=== PATIENT | male | born 1950 | race American Indian/Alaskan Native ===

== ENCOUNTER 2017-10-12 07:21 | Day surgery (SDC) | payer OTHER ==
[2017-10-10 11:42] LABS: Absolute Lymphocytes (CBC) 2.7 K/uL (0.7-4.9); Absolute Monocytes 0.6 K/uL (0.1-1.3); Absolute Neutrophil 5.4 K/uL (1.8-8.0); Basophils % 0.6 % (0-1.3); Hematocrit 42.3 % (39.6-49.0); Lymphocytes % 29.2 % (15.3-44.8); MCH 27.8 pg (27.0-35.0); MCV 83.1 fL (80-100); MPV 12.1 fL (7.6-11.3); Monocytes % 6.5 % (3.3-12.3)
--- NOTE | 2017-10-10 11:43 | RAD REPORT ---
EXAM DESCRIPTION: RADOP - Outpt Chest Pa/Lat (2 Views) - 10/10/2017 11:35 am CLINICAL HISTORY: Chest pain. COMPARISON: None. FINDINGS: The lungs are clear. The heart is normal in size. No displaced fractures. IMPRESSION: No acute or concerning finding suspected.
[2017-10-10 12:10] LABS: BUN Blood Urea Nitrogen 10 mg/dL (6-20); Bicarbonate 28 mEq/L (21-31); Glomerular Filtration Rate > 90 mL/min (=/>90); Glucose Level 97 mg/dL (65-120); Potassium 4.1 mEq/L (3.6-5.0); Sodium Level 139 mEq/L (135-145)
[2017-10-10 12:16] LABS: Albumin 4.1 g/dL (3.2-5.5); Bilirubin Direct 0.1 mg/dL (0-0.2); Bilirubin Total 0.5 mg/dL (0.3-1.2); Protein, Total 7.4 g/dL (6.0-8.3)
--- NOTE | 2017-10-10 13:43 | EKG ---
Test Date: 2017-10-10 Test Time: 11:28:12 Lumber Salvager: CHOCO MEASUREMENT RESULTS: Intervals: Rate: 65 AL: 126 QRSD: 72 QT: 344 QTc: 357 [place]: P: 13 AL: 126 QRS: 30 T: 22 INTERPRETIVE STATEMENTS: Normal sinus rhythm Increased R/S ratio in V1, consider early transition or posterior infarct Abnormal ECG No previous ECG available for comparison Electronically Signed On 10-10-17 13:42:32 CDT by Adriano Guthrie
[2017-10-12] MEDS ORDERED: NA CHLORIDE 0.9% 1,000 ML ONE (07:53)
[2017-10-12] MEDS ORDERED: CEFOXITIN/SWI 1gm 1 GM/10 ML SYR ONE (07:54)
[2017-10-12] MEDS ORDERED: ONDANSETRON 4 MG/2 ML VIAL ONE (08:06)
[2017-10-12] MEDS ORDERED: PROPOFOL 200 MG/20 ML VIAL IV ONE (08:06)
[2017-10-12] MEDS ORDERED: FENTANYL CITR 100 MCG/2 ML ONE (08:06)
[2017-10-12] MEDS ORDERED: LIDOCAINE 2% MPF 5 ML VIAL ONE (08:06)
[2017-10-12] MEDS ORDERED: MIDAZOLAM HCL 2 MG/2 ML INJ ONE ×2 (08:06→09:55)
[2017-10-12] MEDS ORDERED: ROCURONIUM 50 MG/5 ML VIAL IV ONE (08:12)
[2017-10-12] MEDS ORDERED: EPHEDRINE SULF 50 MG/5 ML SYR ONE (09:13)
[2017-10-12] MEDS ORDERED: GLYCOPYRROLATE 0.2 MG/ML SYR ONE (09:34)
[2017-10-12] MEDS ORDERED: NEOSTIGMINE 1 MG/ML -5 ML SYRINGE ONE (09:35)
[2017-10-12] MEDS ORDERED: MEPERIDINE HCL 50 MG/ML AMP ONE (09:49)
[2017-10-12] MEDS ORDERED: HYDROCODONE/APAP 7.5/325 MG TAB ONE (11:14)
--- NOTE | 2017-10-12 12:56 | OP ---
Date of Procedure: 10/12/2017 Surgeon: Grant Vera MD Powerhouse Helper: ISREAL Meade Preoperative Diagnosis: Symptomatic cholelithiasis. Postoperative Diagnosis: Symptomatic cholelithiasis. Procedure: Laparoscopic cholecystectomy. Estimated Blood Loss: Minimal. Specimen: Gallbladder. Finding: As above. Anesthesia: General. Complications: None. Disposition: The patient tolerated the procedure in stable condition and taken to recovery in good g eneral condition. Procedure In Detail: The patient was brought to the OR and placed in supine position. General anest hesia begun. The patient was prepped and draped in usual sterile fashion. Marcaine 0.5% was infiltr ated locally. A 15-blade was used to make a 1-cm supraumbilical midline incision. Subcutaneous tiss ue was divided. The fascia was identified and divided. A #1 Vicryl stay suture was placed. Periton eal cavity was entered with sharp and blunt dissection. A 12 mm trocar was placed into the peritonea l cavity under direct vision. Pneumoperitoneum was established and then three 12-mm trocars were jian dianne; one in the epigastrium just to the right of midline and 2 in the right subcostal region. Laparo scopy revealed chronic inflammation of the gallbladder. Fundus was retracted superiorly. Infundibul um identified and retracted inferolaterally. Cystic duct and cystic artery were clearly identified w ith blunt dissection. Clips placed. Both structures were divided. Cautery used to remove the gallb ladder from the liver bed. Bleeding on the liver bed was controlled with cautery. The gallbladder w as retrieved through the umbilicus via an EndoCatch bag. Right upper quadrant was irrigated. Efflue nt was clear. No evidence of bleeding or bile leakage appreciated. Subsequently, all trocars were r emoved under direct vision. Stay sutures were tied to each other across the fascial defect. Subcuta neous wounds were irrigated. Bleeding controlled with cautery. A 3-0 chromic was used to approximat e the subcutaneous tissue and close the skin. Sterile dressing was applied. The patient was awakene d and taken to Recovery in good general condition. DISCHARGE NOTE The patient will go to Day Surgery and home when stable. Disposition: Home. Condition: Stable. Discharge Instructions: Resume home medications and diet. Activity as tolerated. No heavy lifting. Remove outer dressing in 2 days. Shower. Keep wound clean and dry. Follow up in my office in 1 w three affiliated. Call for appointment. Tylenol No. 3 one tablet p.o. q.4 p.r.n. pain. DANNY/CASS Voice ID: [id number] Report ID: [id number]
== END 2017-10-12 11:53 | disposition home or self-care (01) ==
LOC: OR 07:21
PROVIDERS: ATTEND Surgery
PROC: 0FT44ZZ Resection of Gallbladder, Percutaneous Endoscopic Approach (ICD-10-PCS; principal; 2017-10-12 08:15)
DX: K80.10 Calculus of gallbladder with chronic cholecystitis without obstruction (principal); I10 Essential (primary) hypertension; E11.9 Type 2 diabetes mellitus without complications
CPT/HCPCS: 36415; 47562; 71046; 80048; 80076; 82150; 82962 ×2; 85025; 88304; 93005; J2175; J2250 ×2; J2405; J2710; J3010; J7030

== ENCOUNTER 2023-03-04 21:55 | Emergency (ER) | payer OTHER ==
--- OUTSIDE RECORDS SUMMARY | 2023-03-04 22:01 | XMS REPORT | Continuity of Care Document ---
:1950 Author Organization [facility] t Address [address] [place] [address] Care Team Providers Name Role Phone Shira Monroe John Primary Care Physician MARZENA QUINTERO Attending Clinician Unavailable Doctor Unassigned, [place] Attending Clinician Unavailable GUMARO ELY Attending Clinician Unavailable Gumaro Ely MD Attending Clinician Vaccine, [facility] Attending Clinician Unavailable Oleg Leiva MD Attending Clinician OLEG LEIVA Attending Clinician Unavailable Carley Van RN Attending Clinician Unavailable Only, Ang Db Test Attending Clinician Unavailable Yazmin Bates MD Attending Clinician YAZMIN BATES Attending Clinician Unavailable NITO LEROY Attending Clinician Unavailable Nurse, [facility] Pob Immunization Attending Clinician Unavailable Nito Leroy DO Attending Clinician Marija Lara RN Attending Clinician Unavailable PAXTON SORIANO Attending Clinician Unavailable Marzena Quintero MD Attending Clinician Pob, [facility] Lab Main Attending Clinician Unavailable Only, Adc Test Attending Clinician Unavailable DIAMANTE TOMLINSON Attending Clinician Unavailable MARZENA QUINTERO Admitting Clinician Unavailable GUMARO ELY Admitting Clinician Unavailable Marzena Quintero MD Admitting Clinician Payers Payer Name Policy Type Policy Number Effective Date Expiration Date S ource MEDICARE PART A \\T\\ [id number] 2017 B 00:00:00 [facility] [id number] 2018 00:00:00 Problems Condition Condition Condition Status Onset Resolution Last Treating Co mments Source Name Details Category Date Date Treatment Clinician Date Cholecysti Cholecysti Disease Active U ulises tis tis 4-06 ity of 00:00: [address] Allergies, Adverse Reactions, Alerts Allergy Allergy Status Severity Reaction(s) Onset Inactive Treating Comm ents Source Name Type Date Date Clinician NO KNOWN Drug Active Univers ALLERGIE Class ity of [facility] Social History Social Habit Start Date Stop Date Quantity Comments Source Gender identity [facility] Sexual orientation [facility] Exposure to 2022-03-05 2022-03-15 Not sure [facility] SARS-CoV-2 (event) 00:00:00 19:25:00 [facility] History of Social 2020-11-11 2020-11-11 Univers ity of function 00:00:00 00:00:00 [facility] Tobacco use and 2020-10-14 2020-10-14 Never used Universit y of exposure 00:00:00 00:00:00 [facility] Sex Assigned [birth year] Universit y of 00:00:00 00:00:00 [facility] Smoking Status Start Date Stop Date Source Unknown if ever smoked [facility] Never smoker [facility] Medications Ordered Filled Start Stop Current Ordering Indication Dosage Frequency Signature Comments Components Source Medication Medication Date Date Medication? Clinician (SIG) Name Name losartan 2022- No 100mg 100 mg, Univ ers (COZAAR) 09-15 Oral, ONCE ity of tablet 100 21:30: 20:44 NOW, 1 [place] mg [place] :00 dose, On Medical Fri Branch 09/15/22 at 1530, Routine hydroCHLORO 2022- No 25mg 25 mg, Uni vers thiazide 09-15 Oral, ity of (ESIDRIX) 20:45: 20:44 ONCE, 1 [place] tablet 25 00 :00 dose, On Medica l mg Fri Branch 09/15/22 at 1445, JACQUES enalaprilat 2023-0 2023- No 1.25mg 1.25 mg, Univers (VASOTEC 09-15 Slow IV ity of I.V.) 19:00: 19:02 Push, [place] injection 00 :00 ONCE, 1 Medical 1.25 mg dose, On Branch 09/15/22 at 1300, STAT iopamidol 2022-0 2022- No [id number] 64mL 64 mL, Univers (ISOVUE 09-15 Intravenou ity o f 370-500 mL) 17:50: 18:00 s, ONCE, 1 [place] injection 00 :00 dose, On Medica l 64 mL Fri Branch 09/15/22 at 1200, Routine enalaprilat 2022-0 2022- No 1.25mg 1.25 mg, Univers (VASOTEC 09-15 Slow IV ity of I.V.) 17:00: 17:15 Push, [place] injection 00 :00 ONCE, 1 Medical 1.25 mg dose, On Branch 09/15/22 at 1100, STAT lisinopril 2022-0 2022- No 10mg Take 10 mg Univers 10 mg 09-15 by mouth ity of tablet 14:42: 00:00 daily. [place] 21 :00 [facility] Branch losartan 50 2022-0 2022- No 50mg Take 50 mg Univers mg tablet 09-15 by mouth ity o f 14:42: 00:00 daily. [place] 21 :00 [facility] Branch losartan-hy 2022-0 Yes [id number] 1{tbl} Take 1 Univers drochloroth 2-24 tablet by ity of iazide 00:00: mouth in [place] 100-25 mg 00 the Medical per tablet morning. Branc h hydrALAZINE 2022-0 Yes [id number] 25mg Take 1 Univers 25 mg 2-24 tablet by ity of tablet 00:00: mouth in [place] 00 the Medical morning Branch and 1 tablet in the evening. losartan-hy 3-0 Yes [id number] 1{tbl} Take 1 Univers drochloroth 2-24 tablet by ity of iazide 00:00: mouth in [place] 100-25 mg 00 the Medical per tablet morning. Branc h hydrALAZINE 3-0 Yes [id number] 25mg Take 1 Univers 25 mg 2-24 tablet by ity of tablet 00:00: mouth in [place] [address] the Medical morning Branch and 1 tablet in the evening. losartan 50 2020-0 Yes 50mg Take 50 mg Univers mg tablet 4-22 by mouth ity of 14:27: daily. [place] [address] Medical Branch gabapentin 2020-0 Yes 100mg Take 100 Un jennifer 100 mg 4-22 mg by ity of capsule 14:27: mouth 3 [place] [address] (three) Medical times Branch daily. atorvastati 1-0 Yes 20mg Take 20 mg Univers n 20 mg 4-22 by mouth ity of tablet 14:27: at [place] [address] bedtime. Medical Branch metFORMIN 2020-0 Yes 1000mg Take 1,000 Univers 1,000 mg 4-22 mg by ity of tablet 14:27: mouth 2 [place] [address] (two) Medical times Branch daily with meals. losartan 50 2020-0 Yes 50mg Take 50 mg Univers mg tablet 4-22 by mouth ity of 14:27: daily. [place] [address] Medical Branch gabapentin 2020-0 Yes 100mg Take 100 Un jennifer 100 mg 4-22 mg by ity of capsule 14:27: mouth 3 [place] [address] (three) Medical times Branch daily. atorvastati 2020-0 Yes 20mg Take 20 mg Univers n 20 mg 4-22 by mouth ity of tablet 14:27: at [place] [address] bedtime. Medical Branch metFORMIN 2020-0 Yes 1000mg Take 1,000 Univers 1,000 mg 4-22 mg by ity of tablet 14:27: mouth 2 [place] [address] (two) Medical times Branch daily with meals. lisinopril 2020-0 Yes 10mg Take 10 mg U nivers 10 mg 4-22 by mouth ity of tablet 14:27: daily. [place] [address] Medical Branch losartan 50 1-0 Yes 50mg Take 50 mg Univers mg tablet 4-22 by mouth ity of 14:27: daily. [place] [address] Medical Branch gabapentin 2020-0 Yes 100mg Take 100 Un jennifer 100 mg 4-22 mg by ity of capsule 14:27: mouth 3 [place] [address] (three) Medical times Branch daily. atorvastati 2021-0 Yes 20mg Take 20 mg Univers n 20 mg 4-22 by mouth ity of tablet 14:27: at [place] [address] bedtime. Medical Branch metFORMIN 2020-0 Yes 1000mg Take 1,000 Univers 1,000 mg 4-22 mg by ity of tablet 14:27: mouth 2 [place] 44 (two) Medical times [place] daily with meals. ceFAZolin Yes PRN, Univers (ANCEF) 11-11 Starting ity of injection 14:11: Mary [place] 00 11/11/[address] Until Discontinu ed, JACQUES, Intra-op ceFAZolin 2020-0 2020- No PRN, Univers (ANCEF) 11-11 Starting ity of injection 14:11: 16:27 Mary [place] 00 :46 11/11/20 at [place] [address], [place] Until Mary 11/11/20 at 1127, JACQUES, Intra-op neomycin-po 0 Yes PRN, Univer s lymyxin-dex 11-11 Starting ity of amethasone 14:01: Mary [place] (MAXITROL) 00 11/11/20 at [facility] ica 3.5 0901, [place] mg/g-10,000 Until unit/g-0.1 Discontinu % ed, ophthalmic Routine, ointment Intra-op neomycin-po 2020- No PRN, [facility] rs lymyxin-dex 11-11 Starting ity of amethasone 14:01: 16:27 Mary [place] (MAXITROL) 00 :46 11/11/[address] [facility] 3 0901, [place] mg/g-10,000 Until Mary unit/g-0.1 11/11/20 at % 1127, ophthalmic Routine, ointment Intra-op dexamethaso Yes PRN, Univer s ne 11-11 Starting ity of (DECADRON 13:59: Mary [place] PHOSPHATE) 00 11/11/20 at Med ical injection [address] [place] [address] Until Discontinu ed, Routine, Intra-op gentamicin 0 Yes PRN, Univers injection 11-11 Starting ity of 13:59: Mary [place] 00 11/11/[address] Until Discontinu ed, JACQUES, Intra-op dexamethaso 2020-0 2020- No PRN, Unive rs ne 11-11 Starting ity of (DECADRON 13:59: 16:27 Mary [place] PHOSPHATE) 00 :46 11/11/20 at Med ical injection 0859, Branch Until Mary 11/11/20 at 1127, Routine, Intra-op gentamicin 2020- No PRN, Univer s injection 11-11 Starting ity o f 13:59: 16:27 Mary [place] 00 :46 11/11/20 at Medical 0859, Branch Until Mary 11/11/20 at 1127, JACQUES, Intra-op DUOVISC Yes PRN, Univers (DUOVISC 11-11 Starting ity of VISCO 13:52: Mary [place] ELASTIC) 3 00 11/11/20 at Med ical %-4 %(0.5 0852, Branch mL) 1 % Until (0.55 mL) Discontinu intraocular ed, injection Routine, Intra-op DUOVISC 2020- No PRN, Univers (DUOVISC 11-11 Starting ity of VISCO 13:52: 16:27 Mary [place] ELASTIC) 3 00 :46 11/11/20 at [facility] ical %-4 %(0.5 0852, Branch mL) 1 % Until Mary (0.55 mL) 11/11/20 at intraocular 1127, injection Routine, Intra-op EPINEPHrine Yes PRN, Univer s (PF) 11-11 Starting ity of 1:1,000 (1 13:51: Mary [place] mg/mL) 00 11/11/20 at [facility] (ADRENALIN 0851, Branch (PF)) Until injection Discontinu ed, Routine, Intra-op EPINEPHrine 2020- No PRN, Unive rs (PF) 11-11 Starting ity of 1:1,000 (1 13:51: 16:27 Mary [place] mg/mL) 00 :46 11/11/20 at Medical (ADRENALIN 0851, Branch (PF)) Until Mary injection 11/11/20 at 1127, Routine, Intra-op balanced Yes PRN, Univers salt soln 11-11 Starting ity of no.2 irrig. 13:50: Mary [place] (BSS) 00 11/11/20 at [facility] ophthalmic 0850, Branch solution Until Discontinu ed, Routine, Intra-op balanced 2020- No PRN, Univers salt soln 11-11 Starting ity o f no.2 irrig. 13:50: 16:27 Mary [place] (BSS) 00 :46 11/11/20 at [facility] 08, Branch solution Until Mary 11/11/20 at 1127, Routine, Intra-op water for Yes PRN, Univers irrigation 11-11 Starting ity o f irrigation 13:47: Mary [place] solution 00 11/11/[address] [facility] 08, [place] Until Discontinu ed, Routine, Intra-op water for 2020- No PRN, Univers irrigation 11-11 Starting ity of irrigation 13:47: 16:27 [facility] solution 00 :46 11/11/20 at [place] [address], Branch Until Mary 11/11/20 at 1127, Routine, Intra-op tetracaine Yes PRN, Univers (PONTOCAINE 11-11 Starting ity of ) 0.5 % 13:46: Mary [place] ophthalmic 00 11/11/20 at [facility] ical drops [facility], [place] Until Discontinu ed, Routine, Intra-op tetracaine 2020- No PRN, Univer s (PONTOCAINE 11-11 Starting ity of ) 0.5 % 13:46: 16:27 Mary [place] ophthalmic 00 :46 11/11/20 at [facility] ical drops 0846, Branch Until Mary 11/11/20 at 1127, Routine, Intra-op eye block Yes PRN, Univers syringe 11-11 Starting ity o f mL 13:43: Mary [place] 00 11/11/20 at [place] [address], [place] Until Discontinu ed, Intra-op eye block 2020- No PRN, Univers syringe 11-11 Starting ity of mL 13:43: 16:27 [facility] [place] 00 :46 11/11/20 at [place] [address], [place] Until Mary 11/11/20 at 1127, Intra-op mydriatic 2020- No .5mL 0.5 mL, Univ ers #5 11-11 Right Eye, ity of ophthalmic 13:00: 12:50 ONCE, 1 [place] solution 00 :00 dose, Mary Medica l 0.5 mL 11/11/20 at Branch syringe 0800, Routine, DSU Pre-op lactated 2020- No 1000mL at 42 Unive rs ringers IV 11-11-22 mL/hr, ity of infusion 13:00: 12:55 1,000 mL, [place] 1,000 mL 00 :00 IV Medical Infusion, Branch ONCE, 1 dose, Mary 11/11/20 at 0800, Routine, DSU Pre-op mydriatic 2020- No .5mL 0.5 mL, Univ ers #5 11-11 Right Eye, ity of ophthalmic 13:00: 12:50 ONCE, 1 [place] solution 00 :00 dose, Mary Medica l 0.5 mL 11/11/20 at Branch syringe 0800, Routine, DSU Pre-op lactated 2020- No 1000mL at 42 Unive rs ringers IV 11-11- mL/hr, ity of infusion 13:00: 12:55 1,000 mL, [place] 1,000 mL 00 :00 IV Medical Infusion, [place] ONCE, 1 dose, Mary 11/11/20 at 0800, Routine, DSU Pre-op lisinopril 2020-0 Yes 10mg Take 10 mg U nivers 10 mg 4-22 by mouth ity of tablet 09:27: daily. [address] losartan 50 2020-0 Yes 50mg Take 50 mg Univers mg tablet 4-22 by mouth ity of 09:27: daily. [address] gabapentin 2020-0 Yes 100mg Take 100 Un jennifer 100 mg 4-22 mg by ity of capsule 09:27: mouth 3 [place] [address] (three) Medical times Branch daily. atorvastati 2020-0 Yes 20mg Take 20 mg Univers n 20 mg 4-22 by mouth ity of tablet 09:27: at [place] [address] bedtime. Medical Branch metFORMIN 2020-0 Yes 1000mg Take 1,000 Univers 1,000 mg 4-22 mg by ity of tablet 09:27: mouth 2 [place] [address] (two) Medical times [place] daily with meals. lisinopril 2020-0 Yes 10mg Take 10 mg U nivers 10 mg 4-22 by mouth ity of tablet 09:27: daily. [place] 44 Medical Branch losartan 50 2020-0 Yes 50mg Take 50 mg Univers mg tablet 4-22 by mouth ity of 09:27: daily. [place] [address] Medical Branch gabapentin 2020-0 Yes 100mg Take 100 Un jennifer 100 mg 4-22 mg by ity of capsule 09:27: mouth 3 [place] [address] (three) Medical times Branch daily. atorvastati 2020-0 Yes 20mg Take 20 mg Univers n 20 mg 4-22 by mouth ity of tablet 09:27: at [place] [address] bedtime. Medical Branch metFORMIN 2020-0 Yes 1000mg Take 1,000 Univers 1,000 mg 4-22 mg by ity of tablet 09:27: mouth 2 [place] [address] (two) Medical times [place] daily with meals. lisinopril 2020-0 Yes 10mg Take 10 mg U nivers 10 mg 4-22 by mouth ity of tablet 09:27: daily. [address] Branch losartan 50 2020-0 Yes 50mg Take 50 mg Univers mg tablet 4-22 by mouth ity of 09:27: daily. [place] [address] Medical Branch gabapentin 2020-0 Yes 100mg Take 100 Un jennifer 100 mg 4-22 mg by ity of capsule 09:27: mouth 3 [place] [address] (three) Medical times [place] daily. atorvastati 2020-0 Yes 20mg Take 20 mg Univers n 20 mg 4-22 by mouth ity of tablet 09:27: at [place] [address] bedtime. Medical Branch metFORMIN 2020-0 Yes 1000mg Take 1,000 Univers 1,000 mg 4-22 mg by ity of tablet 09:27: mouth 2 [place] [address] (two) Medical times [place] daily with meals. lisinopril 2020-0 Yes 10mg Take 10 mg U nivers 10 mg 4-22 by mouth ity of tablet 09:27: daily. [address] Branch losartan 50 2020-0 Yes 50mg Take 50 mg Univers mg tablet 4-22 by mouth ity of 09:27: daily. [place] [address] Medical Branch gabapentin 2020-0 Yes 100mg Take 100 Un jennifer 100 mg 4-22 mg by ity of capsule 09:27: mouth 3 [place] [address] (three) Medical times Branch daily. atorvastati 2020-0 Yes 20mg Take 20 mg Univers n 20 mg 4-22 by mouth ity of tablet 09:27: at [place] [address] bedtime. Medical Branch metFORMIN 2020-0 Yes 1000mg Take 1,000 Univers 1,000 mg 4-22 mg by ity of tablet 09:27: mouth 2 [place] [address] (two) Medical times Branch daily with meals. lisinopril 2020-0 Yes 10mg Take 10 mg U nivers 10 mg 4-22 by mouth ity of tablet 09:27: daily. [place] [address] Medical Branch losartan 50 2020-0 Yes 50mg Take 50 mg Univers mg tablet 4-22 by mouth ity of 09:27: daily. [place] [address] Medical Branch gabapentin 2021-0 Yes 100mg Take 100 Un jennifer 100 mg 4-22 mg by ity of capsule 09:27: mouth 3 [place] [address] (three) Medical times Branch daily. atorvastati 1-0 Yes 20mg Take 20 mg Univers n 20 mg 4-22 by mouth ity of tablet 09:27: at [place] [address] bedtime. Medical Branch metFORMIN 2020-0 Yes 1000mg Take 1,000 Univers 1,000 mg 4-22 mg by ity of tablet 09:27: mouth 2 [place] [address] (two) Medical times Branch daily with meals. gabapentin 202-0 Yes 100mg Take 100 Un jennifer 100 mg 4-22 mg by ity of capsule 09:27: mouth 3 [place] [address] (three) Medical times Branch daily. atorvastati 1-0 Yes 20mg Take 20 mg Univers n 20 mg 4-22 by mouth ity of tablet 09:27: at [place] [address] bedtime. Medical Branch metFORMIN 2021-0 Yes 1000mg Take 1,000 Univers 1,000 mg 4-22 mg by ity of tablet 09:27: mouth 2 [place] [address] (two) Medical times Branch daily with meals. gabapentin 2021-0 Yes 100mg Take 100 Un jennifer 100 mg 4-22 mg by ity of capsule 09:27: mouth 3 [place] [address] (three) Medical times Branch daily. atorvastati 2021-0 Yes 20mg Take 20 mg Univers n 20 mg 4-22 by mouth ity of tablet 09:27: at [place] [address] bedtime. Medical Branch metFORMIN 2021-0 Yes 1000mg Take 1,000 Univers 1,000 mg 4-22 mg by ity of tablet 09:27: mouth 2 [place] [address] (two) Medical times Branch daily with meals. losartan 50 1-0 Yes 50mg Take 50 mg Univers mg tablet 4-14 by mouth ity of 16:18: daily. [place] [address] Medical Branch gabapentin 2020-0 Yes 100mg Take 100 Un jennifer 100 mg 4-14 mg by ity of capsule 16:18: mouth 3 [place] [address] (three) Medical times Branch daily. atorvastati 2021-0 Yes 20mg Take 20 mg Univers n 20 mg 4-14 by mouth ity of tablet 16:18: at [place] [address] bedtime. Medical Branch metFORMIN 2020-0 Yes 1000mg Take 1,000 Univers 1,000 mg 4-14 mg by ity of tablet 16:18: mouth 2 [place] [address] (two) Medical times Branch daily with meals. losartan 50 2020-0 Yes 50mg Take 50 mg Univers mg tablet 4-14 by mouth ity of 16:18: daily. [place] [address] Medical Branch gabapentin 2020-0 Yes 100mg Take 100 Un jennifer 100 mg 4-14 mg by ity of capsule 16:18: mouth 3 [place] [address] (three) Medical times Branch daily. atorvastati 2020-0 Yes 20mg Take 20 mg Univers n 20 mg 4-14 by mouth ity of tablet 16:18: at [place] [address] bedtime. Medical Branch metFORMIN 2020-0 Yes 1000mg Take 1,000 Univers 1,000 mg 4-14 mg by ity of tablet 16:18: mouth 2 [place] [address] (two) Medical times [place] daily with meals. losartan 50 1-0 Yes 50mg Take 50 mg Univers mg tablet 4-14 by mouth ity of 16:18: daily. [place] [address] Medical Branch gabapentin 2020-0 Yes 100mg Take 100 Un jennifer 100 mg 4-14 mg by ity of capsule 16:18: mouth 3 [place] [address] (three) Medical times Branch daily. atorvastati 2021-0 Yes 20mg Take 20 mg Univers n 20 mg 4-14 by mouth ity of tablet 16:18: at [place] [address] bedtime. Medical Branch metFORMIN 1-0 Yes 1000mg Take 1,000 Univers 1,000 mg 4-14 mg by ity of tablet 16:18: mouth 2 [place] [address] (two) Medical times Branch daily with meals. losartan 50 1-0 Yes 50mg Take 50 mg Univers mg tablet 3-25 by mouth ity of 16:33: daily. [place] [address] Medical Branch gabapentin 2021-0 Yes 100mg Take 100 Un jennifer 100 mg 3-25 mg by ity of capsule 16:33: mouth 3 [place] 55 (three) Medical times [place] daily. atorvastati Yes 20mg Take 20 mg Univers n 20 mg 3-25 by mouth ity of tablet 16:33: at [place] [address] bedtime. Medical Branch metFORMIN Yes 1000mg Take 1,000 Univers 1,000 mg 3-25 mg by ity of tablet 16:33: mouth 2 [place] 55 (two) Medical times [place] daily with meals. lactated Yes 1000mL at 75 Univer s ringers IV 3-25 mL/hr, ity of infusion 15:30: 1,000 mL, [place] 1,000 mL 00 IV Medical Infusion, Branch CONTINUOUS , Starting [facility] 10/14/20 at 1030, Until Discontinu ed, Routine, PACU HYDROcodone Yes 1{tbl} 1 tablet, Univers -acetaminop 3-25 Oral, ity of hen (NORCO 15:16: Q6HPRN, [place] 5) 5-325 mg 53 Starting Medi kobi tablet 1 [facility] tablet 10/14/20 at 1016, Until Discontinu ed, Routine, Pain (scale 4-6), PACU ondansetron Yes 4mg 4 mg, Slow Univers (ZOFRAN 3-25 IV Push, ity of (PF)) 15:16: PRN, 1 [place] injection 4 53 dose, Medical mg Starting Branch Mary 10/14/20 at 1016, Until Discontinu ed, Routine, Nausea and Vomiting (N/V), PACU water for Yes PRN, Univers irrigation 3-25 Starting ity o f irrigation 15:11: [facility] solution 00 10/14/20 at Medic al 1011, Branch Until Discontinu ed, Routine, Intra-op NaCl 0.9% Yes PRN, Univers (NS) 3-25 Starting ity of injection 15:10: [facility] 00 10/14/20 at Medical 1010, Branch Until Discontinu ed, Routine, Intra-op neomycin-po Yes PRN, Univer s lymyxin-dex 3-25 Starting ity of amethasone 15:10: Mary [place] (MAXITROL) 00 10/14/20 at Med ical 3.5 1010, Branch mg/g-10,000 Until unit/g-0.1 Discontinu % ed, ophthalmic Routine, ointment Intra-op gentamicin Yes PRN, Univers injection 10-14 Starting ity of 15:10: Mary [place] 00 10/14/20 at Medical 1010, Branch Until Discontinu ed, JACQUES, Intra-op EPINEPHrine Yes PRN, Univer s (PF) 10-14 Starting ity of 1:1,000 (1 15:09: [facility] mg/mL) 00 10/14/20 at [facility] (ADRENALIN 1009, Branch (PF)) Until injection Discontinu ed, Routine, Intra-op DUOVISC Yes PRN, Univers (DUOVISC 10-14 Starting ity of VISCO 15:09: [facility] ELASTIC) 3 10/14/20 at [facility] ica %-4 %(0.5 1009, Branch mL) 1 % Until (0.55 mL) Discontinu intraocular ed, injection Routine, Intra-op dexamethaso Yes PRN, Univer s ne 10-14 Starting ity of (DECADRON 15:09: [facility] PHOSPHATE) 10/14/20 at [facility] ical injection 1009, Branch Until Discontinu ed, Routine, Intra-op ceFAZolin Yes PRN, Univers (ANCEF) 10-14 Starting ity of injection 15:09: [facility] 10/14/20 at Medical 1009, Branch Until Discontinu ed, JACQUES, Intra-op balanced Yes PRN, Univers salt soln 10-14 Starting ity of no.2 irrig. 15:08: [facility] (BSS) 10/14/20 at [facility] ophthalmic 1008, Branch solution Until Discontinu ed, Routine, Intra-op tetracaine Yes PRN, Univers (PONTOCAINE 10-14 Starting ity of ) 0.5 % 14:53: [facility] ophthalmic 00 10/14/20 at [facility] ical drops 0953, Branch Until Discontinu ed, Routine, Intra-op eye block 0 Yes PRN, Univers syringe 11 10-14 Starting ity o f mL 14:53: [facility] 00 10/14/20 at [facility] 0953, Branch Until Discontinu ed, Intra-op mydriatic 2020- No .5mL 0.5 mL, Univ ers #5 10-14 Left Eye, ity of ophthalmic 14:00: 13:56 ONCE, 1 [place] solution 00 :00 dose, Mary Medica l 0.5 mL 10/14/20 at Branch syringe 0900, Routine, DSU Pre-op lactated 2020- No 1000mL at Unive rs ringers IV 10-14 03-25 mL/hr, ity of infusion 14:00: 13:56 1,000 mL, [place] 1,000 mL 00 :00 IV Medical Infusion, [place] ONCE, 1 dose, Mary 10/14/20 at 0900, Routine, DSU Pre-op losartan 50 Yes 50mg Take 50 mg Univers mg tablet 3-24 by mouth ity of 17:09: daily. [place] [address] Medical Branch gabapentin Yes 100mg Take 100 Un jennifer 100 mg 3-24 mg by ity of capsule 17:09: mouth 3 [place] [address] (three) Medical times [place] daily. atorvastati Yes 20mg Take 20 mg Univers n 20 mg 3-24 by mouth ity of tablet 17:09: at [place] [address] bedtime. Medical Branch metFORMIN Yes 1000mg Take 1,000 Univers 1,000 mg 3-24 mg by ity of tablet 17:09: mouth 2 [place] [address] (two) Medical times [place] daily with meals. esomeprazol 2018-07 Yes [id number] 40mg Take 1 Univers e (NEXIUM) 2-07 capsule by ity of 40 mg 00:00: mouth [place] capsule 00 daily. Medical Branch esomeprazol 2018-07 Yes [id number] 40mg Take 1 Univers e (NEXIUM) 2-07 capsule by ity of 40 mg 00:00: mouth [place] capsule 00 daily. [facility] Branch esomeprazol 2018-07 Yes [id number] 40mg Take 1 Univers e (NEXIUM) 2-07 capsule by ity of 40 mg 00:00: mouth [place] capsule 00 daily. [facility] Branch esomeprazol 2018-07 Yes [id number] 40mg Take 1 Univers e (NEXIUM) 2-07 capsule by ity of 40 mg 00:00: mouth [place] capsule 00 daily. [facility] Branch esomeprazol 2018-07 Yes [id number] 40mg Take 1 Univers e (NEXIUM) 2-07 capsule by ity of 40 mg 00:00: mouth [place] capsule 00 daily. [facility] esomeprazol 2018-07 Yes [id number] 40mg Take 1 Univers e (NEXIUM) 2-07 capsule by ity of 40 mg 00:00: mouth [place] capsule 00 daily. [facility] esomeprazol 2018-07 Yes [id number] 40mg Take 1 Univers e (NEXIUM) 2-07 capsule by ity of 40 mg 00:00: mouth [place] capsule 00 daily. [facility] esomeprazol 2018-07 Yes [id number] 40mg Take 1 Univers e (NEXIUM) 2-07 capsule by ity of 40 mg 00:00: mouth [place] capsule 00 daily. [facility] esomeprazol 2018-07 Yes [id number] 40mg Take 1 Univers e (NEXIUM) 2-07 capsule by ity of 40 mg 00:00: mouth [place] capsule 00 daily. [facility] esomeprazol 2018-07 Yes [id number] 40mg Take 1 Univers e (NEXIUM) 2-07 capsule by ity of 40 mg 00:00: mouth [place] capsule 00 daily. [facility] esomeprazol 2018-07 Yes [id number] 40mg Take 1 Univers e (NEXIUM) 2-07 capsule by ity of 40 mg 00:00: mouth [place] capsule 00 daily. [facility] lisinopril Yes 10mg Take 10 mg U nivers 10 mg 4-28 by mouth ity of tablet 15:13: daily. [address] lisinopril Yes 10mg Take 10 mg U nivers 10 mg 4-28 by mouth ity of tablet 15:13: daily. [address] lisinopril Yes 10mg Take 10 mg U nivers 10 mg 4-28 by mouth ity of tablet 15:13: daily. [address] levoFLOXaci Yes 500mg Take 1 Uni vers n 500 mg 4-28 tablet by ity of tablet 00:00: mouth [place] 00 every 24 Medical (twenty-fo Branch ur) hours. metroNIDAZO 2017-0 Yes 500mg Take 1 Uni vers LE (FLAGYL) 4-28 tablet by ity of 500 mg 00:00: mouth [place] tablet 00 every 8 Medical (eight) Branch hours. dicyclomine 2017-0 Yes 20mg Take 1 Univ ers (BENTYL) 20 4-28 tablet by ity of mg tablet 00:00: mouth 4 [place] 00 (four) Medical times Branch daily. levoFLOXaci 2017-0 Yes 500mg Take 1 Uni vers n 500 mg 4-28 tablet by ity of tablet 00:00: mouth [place] 00 every 24 Medical (twenty-fo Branch ur) hours. metroNIDAZO 2017-0 Yes 500mg Take 1 Uni vers LE (FLAGYL) 4-28 tablet by ity of 500 mg 00:00: mouth [place] tablet 00 every 8 Medical (eight) Branch hours. dicyclomine 2017-0 Yes 20mg Take 1 Univ ers (BENTYL) 20 4-28 tablet by ity of mg tablet 00:00: mouth 4 [place] 00 (four) Medical times Branch daily. levoFLOXaci 2017-0 Yes 500mg Take 1 Uni vers n 500 mg 4-28 tablet by ity of tablet 00:00: mouth [place] 00 every 24 Medical (twenty-fo Branch ur) hours. metroNIDAZO 2017-0 Yes 500mg Take 1 Uni vers LE (FLAGYL) 4-28 tablet by ity of 500 mg 00:00: mouth [place] tablet 00 every 8 Medical (eight) Branch hours. dicyclomine 2017-0 Yes 20mg Take 1 Univ ers (BENTYL) 20 4-28 tablet by ity of mg tablet 00:00: mouth 4 [place] 00 (four) Medical times Branch daily. levoFLOXaci 2017-0 Yes 500mg Take 1 Uni vers n 500 mg 4-28 tablet by ity of tablet 00:00: mouth [place] 00 every 24 Medical (twenty-fo Branch ur) hours. metroNIDAZO 2017-0 Yes 500mg Take 1 Uni vers LE (FLAGYL) 4-28 tablet by ity of 500 mg 00:00: mouth [place] tablet 00 every 8 Medical (eight) Branch hours. dicyclomine 2017-0 Yes 20mg Take 1 Univ ers (BENTYL) 20 4-28 tablet by ity of mg tablet 00:00: mouth 4 [place] 00 (four) Medical times Branch daily. levoFLOXaci 2017-0 Yes 500mg Take 1 Uni vers n 500 mg 4-28 tablet by ity of tablet 00:00: mouth [place] 00 every 24 Medical (twenty-fo Branch ur) hours. metroNIDAZO 2017-0 Yes 500mg Take 1 Uni vers LE (FLAGYL) 4-28 tablet by ity of 500 mg 00:00: mouth [place] tablet 00 every 8 Medical (eight) Branch hours. dicyclomine 2017-0 Yes 20mg Take 1 Univ ers (BENTYL) 20 4-28 tablet by ity of mg tablet 00:00: mouth 4 [place] 00 (four) Medical times Branch daily. levoFLOXaci 2017-0 Yes 500mg Take 1 Uni vers n 500 mg 4-28 tablet by ity of tablet 00:00: mouth [place] 00 every 24 Medical (twenty-fo Branch ur) hours. metroNIDAZO 2017-0 Yes 500mg Take 1 Uni vers LE (FLAGYL) 4-28 tablet by ity of 500 mg 00:00: mouth [place] tablet 00 every 8 Medical (eight) Branch hours. dicyclomine 2017-0 Yes 20mg Take 1 Univ ers (BENTYL) 20 4-28 tablet by ity of mg tablet 00:00: mouth 4 [place] 00 (four) Medical times Branch daily. levoFLOXaci 2017-0 Yes 500mg Take 1 Uni vers n 500 mg 4-28 tablet by ity of tablet 00:00: mouth [place] 00 every 24 Medical (twenty-fo Branch ur) hours. metroNIDAZO 2017-0 Yes 500mg Take 1 Uni vers LE (FLAGYL) 4-28 tablet by ity of 500 mg 00:00: mouth [place] tablet 00 every 8 Medical (eight) Branch hours. dicyclomine 2017-0 Yes 20mg Take 1 Univ ers (BENTYL) 20 4-28 tablet by ity of mg tablet 00:00: mouth 4 [place] 00 (four) Medical times Branch daily. levoFLOXaci 2017-0 Yes 500mg Take 1 Uni vers n 500 mg 4-28 tablet by ity of tablet 00:00: mouth [place] 00 every 24 Medical (twenty-fo Branch ur) hours. metroNIDAZO 2017-0 Yes 500mg Take 1 Uni vers LE (FLAGYL) 4-28 tablet by ity of 500 mg 00:00: mouth [place] tablet 00 every 8 Medical (eight) Branch hours. dicyclomine 2017-0 Yes 20mg Take 1 Univ ers (BENTYL) 20 4-28 tablet by ity of mg tablet 00:00: mouth 4 [place] 00 (four) Medical times Branch daily. levoFLOXaci 2017-0 Yes 500mg Take 1 Uni vers n 500 mg 4-28 tablet by ity of tablet 00:00: mouth [place] 00 every 24 Medical (twenty-fo Branch ur) hours. metroNIDAZO 2017-0 Yes 500mg Take 1 Uni vers LE (FLAGYL) 4-28 tablet by ity of 500 mg 00:00: mouth [place] tablet 00 every 8 Medical (eight) Branch hours. dicyclomine 2017-0 Yes 20mg Take 1 Univ ers (BENTYL) 20 4-28 tablet by ity of mg tablet 00:00: mouth 4 [place] 00 (four) Medical times Branch daily. levoFLOXaci 2017-0 Yes 500mg Take 1 Uni vers n 500 mg 4-28 tablet by ity of tablet 00:00: mouth [place] 00 every 24 Medical (twenty-fo Branch ur) hours. metroNIDAZO 2017-0 Yes 500mg Take 1 Uni vers LE (FLAGYL) 4-28 tablet by ity of 500 mg 00:00: mouth [place] tablet 00 every 8 Medical (eight) Branch hours. dicyclomine 2017-0 Yes 20mg Take 1 Univ ers (BENTYL) 20 4-28 tablet by ity of mg tablet 00:00: mouth 4 [place] 00 (four) Medical times Branch daily. levoFLOXaci 2017-0 Yes 500mg Take 1 Uni vers n 500 mg 4-28 tablet by ity of tablet 00:00: mouth [place] 00 every 24 Medical (twenty-fo Branch ur) hours. metroNIDAZO 2017-0 Yes 500mg Take 1 Uni vers LE (FLAGYL) 4-28 tablet by ity of 500 mg 00:00: mouth [place] tablet 00 every 8 Medical (eight) Branch hours. dicyclomine 2017-0 Yes 20mg Take 1 Univ ers (BENTYL) 20 4-28 tablet by ity of mg tablet 00:00: mouth 4 [place] 00 (four) Medical times Branch daily. proCHLORper 2017-0 Yes 5mg Take 1 Univ ers azine 5 mg -07 tablet by ity of tablet 00:00: mouth [place] 00 every 6 Medical (six) Branch hours as needed for Nausea and Vomiting (N/V). insulin 2017-0 Yes Blood Univers regular - glucose ity of human Soln 00:00: 150 - 200 [place] injection 00 give 1 Medical units.Bloo Branch d glucose 201 - 250 give 2 units.Bloo d glucose 251 - 300 give 3 units.If blood glucose is >300, give 4 units and NHO. Recheck glucose in 3 hour or before next meal whichever occurs first.If glucose <70, NHO and use hypoglycem ia protocol. insulin NPH 2017-0 Yes Every 3 Uni vers 100 unit/mL 4- days, if ity of injection 00:00: BG in [place] 00 morning is Medical above 130, Branch please add 2 units to night time dose. proCHLORper 2017-0 Yes 5mg Take 1 Univ ers azine 5 mg 4-07 tablet by ity of tablet 00:00: mouth [place] 00 every 6 Medical (six) Branch hours as needed for Nausea and Vomiting (N/V). insulin 2017-0 Yes Blood Univers regular 4-07 glucose ity of human Soln 00:00: 150 - 200 [place] injection 00 give 1 Medical units.Bloo Branch d glucose 201 - 250 give 2 units.Bloo d glucose 251 - 300 give 3 units.If blood glucose is >300, give 4 units and NHO. Recheck glucose in 3 hour or before next meal whichever occurs first.If glucose <70, NHO and use hypoglycem ia protocol. insulin NPH 2017-0 Yes Every 3 Uni vers 100 unit/mL 10-27 days, if ity of injection 00:00: BG in [place] 00 morning is Medical above 130, Branch please add 2 units to night time dose. proCHLORper 2017-0 Yes 5mg Take 1 Univ ers azine 5 mg 4-07 tablet by ity of tablet 00:00: mouth [place] 00 every 6 Medical (six) Branch hours as needed for Nausea and Vomiting (N/V). insulin 2017-0 Yes Blood Univers regular 4-07 glucose ity of human Soln 00:00: 150 - 200 [place] injection 00 give 1 Medical units.Bloo Branch d glucose 201 - 250 give 2 units.Bloo d glucose 251 - 300 give 3 units.If blood glucose is >300, give 4 units and NHO. Recheck glucose in 3 hour or before next meal whichever occurs first.If glucose <70, NHO and use hypoglycem ia protocol. insulin NPH 2017-0 Yes Every 3 Uni vers 100 unit/mL 4- days, if ity of injection 00:00: BG in [place] 00 morning is Medical above 130, Branch please add 2 units to night time dose. proCHLORper 2017-0 Yes 5mg Take 1 Univ ers azine 5 mg 4-07 tablet by ity of tablet 00:00: mouth [place] 00 every 6 Medical (six) Branch hours as needed for Nausea and Vomiting (N/V). insulin 2017-0 Yes Blood Univers regular 4-07 glucose ity of human Soln 00:00: 150 - 200 [place] injection 00 give 1 Medical units.Bloo Branch d glucose 201 - 250 give 2 units.Bloo d glucose 251 - 300 give 3 units.If blood glucose is >300, give 4 units and NHO. Recheck glucose in 3 hour or before next meal whichever occurs first.If glucose <70, NHO and use hypoglycem ia protocol. insulin NPH 2017-0 Yes Every 3 Uni vers 100 unit/mL 10-27 days, if ity of injection 00:00: BG in [place] morning is Medical above 130, Branch please add 2 units to night time dose. proCHLORper 2017-0 Yes 5mg Take 1 Univ ers azine 5 mg 4-07 tablet by ity of tablet 00:00: mouth 00 every 6 Medical (six) Branch hours as needed for Nausea and Vomiting (N/V). insulin 2017-0 Yes Blood Univers regular -07 glucose ity of human Soln 00:00: 150 - 200 [place] injection 00 give 1 Medical units.Bloo Branch d glucose 201 - 250 give 2 units.Bloo d glucose 251 - 300 give 3 units.If blood glucose is >300, give 4 units and NHO. Recheck glucose in 3 hour or before next meal whichever occurs first.If glucose <70, NHO and use hypoglycem ia protocol. insulin NPH 2017-0 Yes Every 3 Uni vers 100 unit/mL 4 days, if ity of injection 00:00: BG in 00 morning is Medical above 130, Branch please add 2 units to night time dose. proCHLORper 2017-0 Yes 5mg Take 1 Univ ers azine 5 mg 4-07 tablet by ity of tablet 00:00: mouth 00 every 6 Medical (six) Branch hours as needed for Nausea and Vomiting (N/V). insulin 2017-0 Yes Blood Univers regular 4-07 glucose ity of human Soln 00:00: 150 - 200 [place] injection 00 give 1 Medical units.Bloo Branch d glucose 201 - 250 give 2 units.Bloo d glucose 251 - 300 give 3 units.If blood glucose is >300, give 4 units and NHO. Recheck glucose in 3 hour or before next meal whichever occurs first.If glucose <70, NHO and use hypoglycem ia protocol. insulin NPH 2017-0 Yes Every 3 Uni vers 100 unit/mL 4 days, if ity of injection 00:00: BG in [place] 00 morning is Medical above 130, Branch please add 2 units to night time dose. proCHLORper 2017-0 Yes 5mg Take 1 Univ ers azine 5 mg 4-07 tablet by ity of tablet 00:00: mouth [place] 00 every 6 Medical (six) Branch hours as needed for Nausea and Vomiting (N/V). insulin 2017-0 Yes Blood Univers regular 4-07 glucose ity of human Soln 00:00: 150 - 200 [place] injection 00 give 1 Medical units.Bloo Branch d glucose 201 - 250 give 2 units.Bloo d glucose 251 - 300 give 3 units.If blood glucose is >300, give 4 units and NHO. Recheck glucose in 3 hour or before next meal whichever occurs first.If glucose <70, NHO and use hypoglycem ia protocol. insulin NPH 2017-0 Yes Every 3 Uni vers 100 unit/mL 10-27 days, if ity of injection 00:00: BG in [place] 00 morning is Medical above 130, Branch please add 2 units to night time dose. proCHLORper 2017-0 Yes 5mg Take 1 Univ ers azine 5 mg 4-07 tablet by ity of tablet 00:00: mouth [place] 00 every 6 Medical (six) Branch hours as needed for Nausea and Vomiting (N/V). insulin 2017-0 Yes Blood Univers regular 4-07 glucose ity of human Soln 00:00: 150 - 200 [place] injection 00 give 1 Medical units.Bloo Branch d glucose 201 - 250 give 2 units.Bloo d glucose 251 - 300 give 3 units.If blood glucose is >300, give 4 units and NHO. Recheck glucose in 3 hour or before next meal whichever occurs first.If glucose <70, NHO and use hypoglycem ia protocol. insulin NPH 2017-0 Yes Every 3 Uni vers 100 unit/mL 4- days, if ity of injection 00:00: BG in [place] 00 morning is Medical above 130, Branch please add 2 units to night time dose. proCHLORper 2017-0 Yes 5mg Take 1 Univ ers azine 5 mg 4-07 tablet by ity of tablet 00:00: mouth [place] 00 every 6 Medical (six) Branch hours as needed for Nausea and Vomiting (N/V). insulin 2017-0 Yes Blood Univers regular 4-07 glucose ity of human Soln 00:00: 150 - 200 [place] injection 00 give 1 Medical units.Bloo Branch d glucose 201 - 250 give 2 units.Bloo d glucose 251 - 300 give 3 units.If blood glucose is >300, give 4 units and NHO. Recheck glucose in 3 hour or before next meal whichever occurs first.If glucose <70, NHO and use hypoglycem ia protocol. insulin NPH 2017-0 Yes Every 3 Uni vers 100 unit/mL 4- days, if ity of injection 00:00: BG in [place] 00 morning is Medical above 130, Branch please add 2 units to night time dose. proCHLORper 2017-0 Yes 5mg Take 1 Univ ers azine 5 mg 4-07 tablet by ity of tablet 00:00: mouth [place] 00 every 6 Medical (six) Branch hours as needed for Nausea and Vomiting (N/V). insulin 2017-0 Yes Blood Univers regular 4-07 glucose ity of human Soln 00:00: 150 - 200 [place] injection 00 give 1 Medical units.Bloo Branch d glucose 201 - 250 give 2 units.Bloo d glucose 251 - 300 give 3 units.If blood glucose is >300, give 4 units and NHO. Recheck glucose in 3 hour or before next meal whichever occurs first.If glucose <70, NHO and use hypoglycem ia protocol. insulin NPH 2017-0 Yes Every 3 Uni vers 100 unit/mL 4- days, if ity of injection 00:00: BG in [place] 00 morning is Medical above 130, Branch please add 2 units to night time dose. proCHLORper 2017-0 Yes 5mg Take 1 Univ ers azine 5 mg 4-07 tablet by ity of tablet 00:00: mouth [place] 00 every 6 Medical (six) Branch hours as needed for Nausea and Vomiting (N/V). insulin Yes Blood Univers regular - glucose ity of human Soln 00:00: 150 - 200 [place] injection 00 give 1 Medical units.Bloo Branch d glucose 201 - 250 give 2 units.Bloo d glucose 251 - 300 give 3 units.If blood glucose is >300, give 4 units and NHO. Recheck glucose in 3 hour or before next meal whichever occurs first.If glucose <70, NHO and use hypoglycem ia protocol. insulin NPH Yes Every 3 Uni vers 100 unit/mL 4-07 days, if ity of injection 00:00: BG in [place] 00 morning is Medical above 130, Branch please add 2 units to night time dose. Immunizations Ordered Filled Immunization Date Status Comments [facility] e Immunization Name Name SARS-COV-2 COVID-19 2022-05-11 Completed Unive rsity of VACCINE 20 YRS+, 00:00:00 [place] Me dical BIVALENT 0.5ML, IM, Branc h (MODERNA BOOSTER) SARS-COV-2 COVID-19 2022-05-11 Completed Unive rsity of VACCINE 12 YRS+, 00:00:00 [place] Me dical BIVALENT 0.5ML, IM, Branc h (MODERNA BOOSTER) SARS-COV-2 COVID-19 2022-05-11 Completed Unive rsity of VACCINE 12 YRS+, 00:00:00 [place] Me dical BIVALENT 0.5ML, IM, Branc h (MODERNA-BLUE TOP) SARS-COV-2 COVID-19 2021-06-08 Completed Unive rsity of MODERNA BOOSTER 00:00:00 [place] Med ical VACCINE Branch SARS-COV-2 COVID-19 2021-06-08 Completed Unive rsity of MODERNA 0.25ML 00:00:00 [place] Medi kobi BOOSTER VACCINE Branch SARS-COV-2 COVID-19 2021-06-08 Completed Unive rsity of MODERNA 0.25ML 00:00:00 [place] Medi kobi BOOSTER VACCINE Branch SARS-COV-2 COVID-19 2021-06-08 Completed Unive rsity of MODERNA 0.25ML 00:00:00 [place] Medi kobi BOOSTER VACCINE Branch SARS-COV-2 COVID-19 2021-06-08 Completed Unive rsity of MODERNA 0.25ML 00:00:00 [place] Medi kobi BOOSTER VACCINE Branch SARS-COV-2 COVID-19 2021-06-08 Completed Unive rsity of MODERNA 0.25ML 00:00:00 [place] Medi kobi BOOSTER VACCINE Branch SARS-COV-2 COVID-19 2021-06-08 Completed Unive rsity of MODERNA 0.25ML 00:00:00 [place] Medi kobi BOOSTER VACCINE Branch SARS-COV-2 COVID-19 2020-09-23 Completed Unive rsity of MODERNA VACCINE 00:00:00 [place] Med ical Branch SARS-COV-2 COVID-19 2020-09-23 Completed Unive rsity of MODERNA VACCINE 00:00:00 [place] Med ical Branch SARS-COV-2 COVID-19 2020-09-23 Completed Unive rsity of MODERNA VACCINE 00:00:00 [place] Med ical Branch SARS-COV-2 COVID-19 2020-09-23 Completed Unive rsity of MODERNA VACCINE 00:00:00 [place] Med ical Branch SARS-COV-2 COVID-19 2020-09-23 Completed Unive rsity of MODERNA VACCINE 00:00:00 [place] Med ical Branch SARS-COV-2 COVID-19 2020-09-23 Completed Unive rsity of MODERNA VACCINE 00:00:00 [place] Med ical Branch SARS-COV-2 COVID-19 2020-09-23 Completed Unive rsity of MODERNA VACCINE 00:00:00 [place] Med ical Branch SARS-COV-2 COVID-19 2020-09-23 Completed Unive rsity of MODERNA VACCINE 00:00:00 [place] Med ical Branch SARS-COV-2 COVID-19 2020-09-23 Completed Unive rsity of MODERNA 12+ YRS 00:00:00 [place] Med ical VACCINE Branch SARS-COV-2 COVID-19 2020-09-23 Completed Unive rsity of MODERNA 12+ YRS 00:00:00 [place] Med ical VACCINE Branch SARS-COV-2 COVID-19 2020-09-23 Completed Unive rsity of MODERNA 12+ YRS 00:00:00 [place] Med ical VACCINE Branch SARS-COV-2 COVID-19 2020-09-23 Completed Unive rsity of MODERNA VACCINE 00:00:00 [place] Med ical Branch SARS-COV-2 COVID-19 2020-09-23 Completed Unive rsity of MODERNA VACCINE 00:00:00 [place] Med ical Branch SARS-COV-2 COVID-19 2020-09-23 Completed Unive rsity of MODERNA VACCINE 00:00:00 [place] Med ical Branch SARS-COV-2 COVID-19 2020-09-23 Completed Unive rsity of MODERNA VACCINE 00:00:00 [place] Med ical Branch SARS-COV-2 COVID-19 2020-09-23 Completed Unive rsity of MODERNA VACCINE 00:00:00 [place] Med ical Branch SARS-COV-2 COVID-19 2020-09-23 Completed Unive rsity of MODERNA VACCINE 00:00:00 [place] Med ical Branch SARS-COV-2 COVID-19 2020-08-26 Completed Unive rsity of MODERNA VACCINE 00:00:00 [place] Med ical Branch SARS-COV-2 COVID-19 2020-08-26 Completed Unive rsity of MODERNA VACCINE 00:00:00 [place] Med ical Branch SARS-COV-2 COVID-19 2020-08-26 Completed Unive rsity of MODERNA VACCINE 00:00:00 [place] Med ical Branch SARS-COV-2 COVID-19 2020-08-26 Completed Unive rsity of MODERNA VACCINE 00:00:00 [place] Med ical Branch SARS-COV-2 COVID-19 2020-08-26 Completed Unive rsity of MODERNA VACCINE 00:00:00 [place] Med ical Branch SARS-COV-2 COVID-19 2020-08-26 Completed Unive rsity of MODERNA VACCINE 00:00:00 [place] Med ical Branch SARS-COV-2 COVID-19 2020-08-26 Completed Unive rsity of MODERNA VACCINE 00:00:00 [place] Med ical Branch SARS-COV-2 COVID-19 2020-08-26 Completed Unive rsity of MODERNA VACCINE 00:00:00 [place] Med ical Branch SARS-COV-2 COVID-19 2020-08-26 Completed Unive rsity of MODERNA VACCINE 00:00:00 [place] Med ical Branch SARS-COV-2 COVID-19 2020-08-26 Completed Unive rsity of MODERNA VACCINE 00:00:00 [place] [facility] ical Branch SARS-COV-2 COVID-19 2020-08-26 Completed Unive rsity of MODERNA VACCINE 00:00:00 [place] Med ical Branch SARS-COV-2 COVID-19 2020-08-26 Completed Unive rsity of MODERNA 12+ YRS 00:00:00 [place] Med ical VACCINE Branch SARS-COV-2 COVID-19 2020-08-26 Completed Unive rsity of MODERNA 12+ YRS 00:00:00 [place] Med ical VACCINE Branch SARS-COV-2 COVID-19 2020-08-26 Completed Unive rsity of MODERNA 12+ YRS 00:00:00 [place] [facility] ical VACCINE Branch SARS-COV-2 COVID-19 2020-08-26 Completed Unive rsity of MODERNA VACCINE 00:00:00 [facility] ical Branch SARS-COV-2 COVID-19 2020-08-26 Completed Unive rsity of MODERNA VACCINE 00:00:00 [facility] ical Branch SARS-COV-2 COVID-19 2020-08-26 Completed Unive rsity of MODERNA VACCINE 00:00:00 [facility] Vital Signs Vital Name Observation Time Observation Value Comments Source Systolic blood 2022-09-15 20:00:00 164 mm[Hg] Univer sity of pressure [facility] Diastolic blood 2022-09-15 20:00:00 87 mm[Hg] Unive rsity of pressure [facility] Heart rate 2022-09-15 20:00:00 66 /min [facility] Respiratory rate 2022-09-15 20:00:00 19 /min [facility] Oxygen saturation in 2022-09-15 20:00:00 99 /min [facility] Arterial blood by [facility] Pulse oximetry [place] Body temperature 2022-09-15 16:43:00 36.89 Deborah [facility] [place] Body weight 2022-09-15 16:43:00 66.225 kg [facility] BMI 2022-09-15 16:43:00 28.51 kg/m2 [facility] Systolic blood 2020-11-11 14:17:00 154 mm[Hg] Univer sity of pressure [place] [facility] Diastolic blood 2020-11-11 14:17:00 79 mm[Hg] Unive rsity of pressure [place] [facility] Heart rate 2020-11-11 14:17:00 60 /min [facility] [place] [facility] Respiratory rate 2020-11-11 14:17:00 16 /min Univ ers[facility] [place] [facility] Oxygen saturation in 2020-11-11 14:17:00 99 /min University of Arterial blood by [facility] Pulse oximetry Branch Body temperature 2020-11-11 14:07:00 36.33 Deborah [facility] [place] [facility] Body height 2020-11-03 15:22:00 152.4 cm [facility] [place] [facility] Body weight 2020-11-03 15:22:00 63 kg [facility] [place] [facility] BMI 2020-11-03 15:22:00 27.13 kg/m2 [facility] [place] [facility] Systolic blood 2020-11-11 14:12:00 148 mm[Hg] Univer sity of pressure [place] [facility] Diastolic blood 2020-11-11 14:12:00 76 mm[Hg] Unive rsity of pressure [place] [facility] Heart rate 2020-11-11 14:12:00 61 /min [facility] [place] [facility] Respiratory rate 2020-11-11 14:12:00 16 /min [facility] ers[facility] [place] [facility] Oxygen saturation in 2020-11-11 14:12:00 99 /min University of Arterial blood by [facility] Pulse oximetry Branch Body temperature 2020-11-11 14:07:00 36.33 Deborah [facility] [place] [facility] Body height 2020-11-03 15:22:00 152.4 cm [facility] [place] [facility] Body weight 2020-11-03 15:22:00 63 kg [facility] [place] [facility] BMI 2020-11-03 15:22:00 27.13 kg/m2 [facility] [place] [facility] Systolic blood 2020-10-14 15:32:00 164 mm[Hg] Univer sity of pressure [place] [facility] Diastolic blood 2020-10-14 15:32:00 81 mm[Hg] Unive rsity of pressure [place] [facility] Heart rate 2020-10-14 15:32:00 65 /min [facility] Respiratory rate 2020-10-14 15:32:00 16 /min [facility] Oxygen saturation in 2020-10-14 15:32:00 99 /min [facility] Arterial blood by [facility] Pulse oximetry [place] Body temperature 2020-10-14 15:19:00 36.61 Deborah [facility] Body height 2020-10-05 18:56:00 152.4 cm [facility] Body weight 2020-10-05 18:56:00 63 kg [facility] BMI 2020-10-05 18:56:00 27.13 kg/m2 [facility] Procedures Procedure Date / Time Performing Source Performed Clinician MEDICATION CORRESPONDENCE 2022-12-09 Doctor Unassigned, [facility] 05:01:00 [place] [facility] CT ABDOMEN PELVIS W CONTRAST 2022-09-15 Gumaro Ely [facility] 17:56:[address] [facility] [address] HEAD WO CONTRAST 2022-09-15 Solis Gumaro [facility] 17:43:00 [facility] COMP. METABOLIC PANEL (41569) 2022-09-15 Gumaro Ely [facility] 16:59:00 [facility] LIPID PANEL ([id number])(TOTAL 2022-09-15 Gumaro Ely [facility] CHOLESTEROL, TRIGLYCERIDES, 16:59:00 [facility] HDL) CBC WITH DIFF 2022-09-15 Gumaro Ely [facility] 16:59:00 [facility] GLYCOSYLATED HEMOGLOBIN (A1C) 2022-09-15 Gumaro Ely [facility] 16:59:00 [facility] URINALYSIS 2022-09-15 Solis [facility] 16:59:00 [facility] CONSENT/REFUSAL FOR DIAGNOSIS 2022-09-15 Doctor Unassregino, [facility] AND TREATMENT 16:33:40 [place] [facility] SARS-COV-2 COVID-19 VACCINE 2022-05-11 Doctor Unassregino, [facility] 20 YRS+, BIVALENT 0.5ML, IM 15:26:09 [place] [facility] (MODERNA BOOSTER) ASSIGNMENT OF BENEFITS 2022-03-16 Doctor Unassigned, [facility] 00:23:46 [place] [facility] SARS-COV-2 COVID-19 VACCINE 2021-06-08 Doctor Unassigned, [facility] BOOSTER,0.25ML,IM (MODERNA) 21:36:13 [place] [facility] PHACOEMULSIFICATION OF 2020-11-11 Ingrid [facility] CATARACT WITH INTRAOCULAR 13:34:00 Cruz Lam [facility] LENS IMPLANT POCT GLUCOSE(AGE >30DAYS) 2020-11-11 Hermilo Oconnor [facility] 12:54:00 [facility] POCT GLUCOSE(AGE >30DAYS) 2020-11-11 Hermilo Oconnor [facility] 12:54:00 [facility] POCT GLUCOSE (AUTOMATED) 2020-11-11 Ingrid [facility] 12:53:00 [facility] [place] POCT GLUCOSE (AUTOMATED) 2020-11-11 Ingrid [facility] 12:53:00 [facility] ASSIGNMENT OF BENEFITS 2020-11-10 Doctor Unassigned, [facility] 15:51:25 [facility] POCT GLUCOSE (AUTOMATED) 2020-10-14 Ingrid [facility] 13:50:00 [facility] COVID-19 (ID NOW RAPID 2020-10-13 Ingrid [facility] TESTING) 17:50:00 [facility] ASSIGNMENT OF BENEFITS 2020-10-13 Doctor Unabertha, [facility] 16:11:21 [facility] [place] [facility] Encounters Start End Encounter Admission Attending Care Care Encounter Source Date/Time Date/Time Type Type Clinicians Facility Department ID 2021-05-22 Outpatient R INGRID, [facility] OPH [id number] Univers 14:22:[address] [facility] 2021-05-22 Outpatient R INGRID, [facility] OPH [id number] Univers 11:18:[address] [facility] 2021-05-22 Outpatient R INGRID, [facility] OPH [id number] Univers 08:10:[address] [facility] 2021-05-21 Outpatient R INGRID, [facility] RYLEE [id number] Univers 20:07:[address] [facility] 2022-12-09 2022-12-09 Orders Doctor IFRAH 1.2.840.114 [id number] Univers 00:00:00 00:00:00 Only Unassigned, KATIE 350.1.13.10 ity of [place] [facility] 4.2.7.2.686 [place] [phone] [facility] [address] 2022-09-15 2022-09-15 Emergency X SOLIS, [facility] ERT [id number] Univers 10:44:00 14:54:00 GUMARO ity [facility] 2022-09-15 2022-09-15 Emergency Solis, [facility] 1.2.840.114 [id number] Univers 10:44:00 14:54:00 Gumaro ORR 350.1.13.10 i ty [place] [phone] [facility] [address] 2022-05-11 2022-05-11 Imm/Inj Vaccine, Adc Family Medicine [facility] 1.2.840.114 [id number] Univers 10:00:00 10:10:00 Visit Oleg Leiva 350.1.13.10 ity [facility] [phone] Ct dical NAL 044 [facility] 2022-05-11 2022-05-11 Outpatient R GEENA [facility] [id number] Univers 10:00:00 10:00:00 OLEG burnham [facility] 2022-03-16 2022-03-16 Letter Carley Van 1.2.840.114 [id number] Univers 00:00:00 00:00:00 (Out) KATIE 350.1.13.10 it y of HOSPITAL 4.2.7.2.686 [place] [phone] [facility] [address] 2022-03-15 2022-03-15 Laboratory Only, Ang Db Test [facility] 1.2.8 40.114 [id number] Univers 19:15:00 19:30:00 Only [facility] 350.1.13.10 ity of [place] 4.2.7.2.686 [place] TIM?BLEA [phone] Me dical KNEY [address] MEDICAL OFFICE BUILDING 2022-03-15 2022-03-15 Outpatient R PAULO [facility] [id number] Univers 19:15:00 19:29:46 YAZMIN ity of [facility] 2022-03-15 2022-03-15 Orders Doctor IFRAH 1.2.840.114 [id number] Univers 00:00:00 00:00:00 Only Unassigned, KATIE 350.1.13.10 ity of [place] [facility] 4.2.7.2.686 [place] [phone] [facility] [address] 2021-06-08 2021-06-08 Outpatient R RAD [facility] [id number] Univers 15:20:00 14:53:34 NITO burnham [facility] 2021-06-08 2021-06-08 Imm/Inj Nurse, Adc Pob Immunization [facility] 1.2.840.114 [id number] Univers 14:53:21 14:53:34 Visit Nito Leroy 350.1.13 .10 ity minerva [place] [phone] [facility] [address] BU[facility] 2021-03-10 2021-03-10 Letter IFRAH Lara 1.2.840.114 [id number] Univers 00:00:00 00:00:00 (Out) Marija WILSON 350.1.13.10 it y of [facility] 4.2.7.2.686 [place] [phone] [facility] [address] 2021-03-09 2021-03-09 Outpatient R CHRISTIE [facility] [id number] Univers 11:40:00 11:40:00 PAXTON ity of [facility] 2020-11-11 2020-11-11 [facility] 1.2.840.114 [id number] Univers 07:41:00 09:27:00 Encounter Marzena Orr 350.1.13.10 [place] [id number] [address] 2020-11-11 2020-11-11 Surgery [facility] 1.2.840.114 [id number] Univers 08:36:00 09:12:00 Marzena Orr 350.1.13.10 i ty [place] [phone] [facility] [address] 2020-11-10 2020-11-10 Operations Leader Joseph, Adc Lab Main [facility] 1.2.8 40.114 [id number] Univers 10:53:36 11:08:36 Visit Marzena Quintero 350.1.1 3.10 it[place] [phone] Ct dical [facility] [address] Building 2020-11-10 2020-11-10 Laboratory Only, Adc Test [facility] 1.2.840. 114 [id number] Univers 10:53:06 11:08:06 Only Marzena Quintero 350.1.1 3.10 ity of [place] [phone] [facility] [address] 2020-11-10 2020-11-10 Outpatient R INGRID [facility] [id number] Univers 11:00:00 11:00:00 MARZENA dione [facility] 2020-11-10 2020-11-10 Outpatient [facility] [id number] Univers 11:00:00 11:00:00 MARZENA burnham [facility] 2020-11-10 2020-11-10 Orders Doctor RG 1.2.840.114 [id number] Univers 00:00:00 00:00:00 Only Unassigned, KATIE 350.1.13.10 ity of [place] [facility] 4.2.7.2.686 [place] [phone] [facility] [address] 2020-10-14 2020-10-14 [facility] [id number] Univers 08:33:00 10:58:00 MARZENA burnham [facility] 2020-10-14 2020-10-14 Roman [facility] 1.2.840.114 [id number] Univers 08:33:00 10:58:00 Encounter Marzena Orr 350.1.13.10 ity of [place] [phone] [facility] [address] 2020-10-13 2020-10-13 Outpatient Shaye QUINTERO [facility] [id number] Univers 13:30:00 13:30:00 MARZENA burnham [facility] 2020-10-13 2020-10-13 Outpatient Shaye QUINTERO [facility] [id number] Univers 11:45:00 11:45:00 MARZENA dione [facility] 2020-10-13 2020-10-13 Operations Leader Joseph, Adc Lab Main [facility] 1.2.8 40.114 [id number] Univers 11:10:30 11:25:30 Visit Ingrid Marzena Orr 350.1.1 3.10 ity of [place] [phone] [facility] 353 [facility] 2020-10-13 2020-10-13 Laboratory Only, Adc Test [facility] 1.2.840. 114 [id number] Univers 11:08:05 11:23:05 Only Marzena Quintero 350.1.1 3.10 ity of [place] [phone] [facility] [address] 2020-10-13 2020-10-13 Orders Doctor IFRAH 1.2.840.114 [id number] Univers 00:00:00 00:00:00 Only Unassigned, KATIE 350.1.13.10 ity of [place] [facility] 4.2.7.2.686 [place] [phone] [facility] [address] 2020-09-23 2020-09-23 Outpatient Shaye TOMLINSON [facility] [id number] Univers 10:50:00 11:02:45 DIAMANTE burnham [facility] 2020-09-15 2020-09-15 Outpatient Shaye QUINTERO [facility] [id number] Univers 09:45:00 09:45:00 MARZENA burnham [facility] 2020-09-07 2020-09-07 Outpatient Shaye QUINTERO [facility] [id number] Univers 11:15:00 11:15:00 MARZENA [facility] 2020-08-26 2020-08-26 Outpatient R BUSHRA, [facility] [id number] [facility] [place] 10:50:00 10:49:43 DIAMANTE [facility] Results Test Description Test Time Test Comments Results Result Comments Source GLYCOSYLATED HEMOGLOBIN (A1C) 2022-09-15 18:00:18 Test Item Value Reference Range Interpretation Comme nts HGB A1C (test code = 4548-4) 6.9 % 4.0-5.7 H NITIN (test code = NITIN) Reference RangesNormal: <5.7%Prediabetes: 5.7 - 6.4%Diabetes: > 6.5% Lab Interpretation (test code = Abnormal 29086-3) [facility]TOTAL CHOLESTEROL, TRIGLYCERIDES, HDL)2022-09-15 17:42:08 Test Item Value Reference Range Interpretation Comments CHOL (test code = 4960264285) 107 mg/dL 120-200 L HDL (test code = 3680551551) 49 mg/dL >=40 HDLC RATIO (test code = 4864864023) 2.2 <=5.0 TRIG (test code = 5565093735) 98 mg/dL 30-170 LDL CHOL (test code = 82987-8) 38 mg/dL <=160 VLDL (test code = 0475673213) 20 mg/dL 5-60 Lab Interpretation (test code = Abnormal 93437-3) [facility] (07143)2022-09-15 17:41:47 Test Item Value Reference Range Interpretation Comments NA (test code = 140 mmol/L 135-145 8977222016) K (test code = 4.5 mmol/L 3.5-5.0 2000015084) CL (test code = 107 mmol/L 98-108 7600570397) CO2 TOTAL (test code = 24 mmol/L 23-31 0731081281) AGAP (test code = 9 2-16 5773241834) BUN (test code = 14 mg/dL 7-23 9163084717) GLUCOSE (test code = 104 mg/dL 70-110 0457891915) CREATININE (test code = 0.68 mg/dL 0.60-1.25 8897916167) TOTAL BILI (test code = 0.3 mg/dL 0.1-1.6 1072000591) CALCIUM (test code = 8.5 mg/dL 8.6-10.6 L 9295783760) T PROTEIN (test code = 7.2 g/dL 6.3-8.2 2325569703) ALBUMIN (test code = 4.1 g/dL 3.5-5.0 1893620827) ALK PHOS (test code = 81 U/L 34-122 3422092445) ALTv (test code = 26 U/L 5-50 1742-6) AST(SGOT) (test code = 29 U/L 13-40 3098064430) eGFR (test code = 115.3 mL/min/1.73m2 5416279586) NITIN (test code = NITIN) Association of Glomerular Filtration Rate (GFR) and Staging of Kidney Disease* + --+ --+ ------+| GFR (mL/min/1.73 m2) ?| With Kidney Damage ?| ?Without Kidney Damage+ --------+ --------+ +| ?>90 ?| ?Stage one ?| ? Normal ?+ ---+ ---+ -------+| ?60-89 ?| ?Stage two ?| ? Decreased GFR ? + --+ --+ ------+| ?30-59 ?| ?Stage three ?| ? Stage three ? + --+ --+ ------+| ?15-29 ?| ?Stage four ? | ? Stage four ?+ ---+ ---+ -------+| ?<15 (or dialysis) ? ?| ?Stage five ? | ? Stage five ?+ ---+ ---+ -------+ *Each stage assumes the associated GFR level has been in effect for at least three months. ?Stages 1 to 5, with or without kidney disease, indicate chronic kidney disease. Notes: Determination of stages one and two (with eGFR >59mL/min/1.73 m2) requires estimation of kidney damage for at least three months as defined by structural or functional abnormalities of the kidney, manifested by either:Pathological abnormalities or Markers of kidney damage (including abnormalities in the composition of the blood or urine or abnormalities in imaging tests). Lab Interpretation Abnormal (test code = 36407-8) [facility] WITH [id number] 17:20:44 Test Item Value Reference Range Interpretation Comments WBC (test code = 8.58 See_Comment [Automated 6690-2) message] The sy stem which generated this result transmitted reference range : 4.20 - 10.70 10*3/?L. The reference range was not used to interpret this result as normal/abnormal . RBC (test code = 4.41 See_Comment [Automated 789-8) message] The sy stem which generated this result transmitted reference range : 4.26 - 5.52 10*6/?L. The reference range was not used to interpret this result as normal/abnormal . HGB (test code = 12.2 g/dL 12.2-16.4 718-7) HCT (test code = 37.5 % 38.4-49.3 L 4544-3) MCV (test code = 85.0 fL 81.7-95.6 787-2) MCH (test code = 27.7 pg 26.1-32.7 785-6) MCHC (test code = 32.5 g/dL 31.2-35.0 786-4) RDW-SD (test code = 41.5 fL 38.5-51.6 15795-3) RDW-CV (test code = 13.4 % 12.1-15.4 788-0) PLT (test code = 179 See_Comment [Automated 777-3) message] The sy stem which generated this result transmitted reference range : 150 - 328 10*3/ ?L. The reference r yuan was not used to interpret this result as normal/abnormal . MPV (test code = 13.0 fL 9.8-13.0 21676-0) NRBC/100 WBC (test 0.0 See_Comment [Automat ed code = 8972166651) message] The system which generated this result transmitted reference range : 0.0 - 10.0 /100 WBCs. The refer ence range was not u sed to interpret th is result as normal/abnormal . NRBC x10^3 (test code See_Comment [Auto mated = 6656981499) message] The s ystem which generated this result transmitted reference range : 10*3/?L. The reference range was not used to interpret this result as normal/abnormal . GRAN MAT (NEUT) % 57.4 % (test code = 770-8) IMM GRAN % (test code 0.20 % = 8921478954) LYMPH % (test code = 27.2 % 736-9) MONO % (test code = 6.9 % 5905-5) EOS % (test code = 8.0 % 713-8) BASO % (test code = 0.3 % 706-2) GRAN MAT x10^3(ANC) 4.92 10*3/uL 1.99-6.95 (test code = 5948027725) IMM GRAN x10^3 (test 0.00-0.06 code = 2438382652) LYMPH x10^3 (test code 2.33 10*3/uL 1.09-3.23 = 731-0) MONO x10^3 (test code 0.59 10*3/uL 0.36-1.02 = 742-7) EOS x10^3 (test code = 0.69 10*3/uL 0.06-0.53 H 711-2) BASO x10^3 (test code 0.03 10*3/uL 0.01-0.09 = 704-7) Lab Interpretation Abnormal (test code = 91174-2) [facility] GLUCOSE (AUTOMATED)2020-11-11 12:59:15 Test Item Value Reference Range Interpretation Comments POCT GLU (test code = 2304822016) 108 mg/dL 70-110 Lab Interpretation (test code = Normal 86952-9) [facility] GLUCOSE (AUTOMATED)2020-11-11 12:59:15 Test Item Value Reference Range Interpretation Comments POCT GLU (test code = 8929598967) 108 mg/dL 70-110 Lab Interpretation (test code = Normal 26561-7) [facility] [id number] 12:54:00 Test Item Value Reference Range Interpretation Comments POCT Glu (age>30days) (test code = 108 mg/dL 70-110 3342) [facility] [id number] 12:54:00 Test Item Value Reference Range Interpretation Comments POCT Glu (age>30days) (test code = 108 mg/dL 70-110 3342) [facility]2020-10[facility]14 13:54:29 Test Item Value Reference Range Interpretation Comments POCT GLU (test code = 5207571990) 113 mg/dL 70-110 H Lab Interpretation (test code = Abnormal 48595-2) [facility] NOW RAPID TESTING)2020-10-13 18:53:34 Test Item Value Reference Range Interpretation Comments SARS-CoV-2 Rapid ID NOW Not Detected Not Detected (test code = 43980-5) NITIN (test code = NITIN) ID NOW COVID-19 Assay is an isothermal nucleic acid amplification test intended for the qualitative detection of nucleic acid from SARS-CoV-2 viral RNA in nasopharyngeal (AUTOMATION ARCHITECT) specimens. It is used under Emergency Use Authorization (EUA) by FDA. The limit of detection (LOD) of the assay is 125 Genome Equivalents/mL. A positive result is indicative of the presence of SARS-CoV-2 RNA. ?Clinical correlation with patient history and other diagnostic information is necessary to determine patient infection status. A negative (Not Detected) result does not preclude SARS-CoV-2 infection. In patients with clinical symptoms and other tests that are consistent with SARS-CoV-2 infection, negative results should be treated as presumptive negative and a new specimen should be tested with alternative PCR molecular test. Invalid: Please collect a new specimen for repeat patient testing if clinically indicated. Lab Interpretation Normal (test code = 42390-6) [facility]"
[2023-03-04 22:59] LABS: Absolute Lymphocytes (CBC) 2.2 K/uL (0.7-4.9); Hematocrit 34.2 % (39.6-49.0); Lymphocytes % 26.4 % (15.3-44.8); MCV 83.9 fL (80-100); Platelets 197 thou/uL (152-406); RBC Red Blood Cell Count 4.08 M/uL (4.33-5.43)
[2023-03-04] MEDS ORDERED: MORPHINE 4 MG/ML SYR ONE (23:00)
[2023-03-04] MEDS ORDERED: ONDANSETRON 4 MG/2 ML VIAL ONE (23:00)
[2023-03-04 23:10] LABS: ALT/SGPT 33 U/L (16-61); AST/SGOT 20 U/L (15-37); Albumin 3.5 g/dL (3.4-5.0); Alkaline Phosphatase 77 U/L (45-117); BUN Blood Urea Nitrogen 14 mg/dL (7-18); Bicarbonate 22 mEq/L (21-32); Bilirubin Total 0.2 mg/dL (0.2-1.0); Glomerular Filtration Rate 82 ml/min (=/>90); Glucose Level 192 mg/dL (74-106); Lipase 45 U/L (13-75); Magnesium 1.8 mg/dL (1.6-2.4); Potassium 3.6 mEq/L (3.5-5.1); Protein, Total 7.2 g/dL (6.4-8.2); Sodium Level 140 mEq/L (136-145); Troponin High Sensitivity 4.3 pg/mL (<58.9)
[2023-03-04 23:46] LABS: Bilirubin Direct < 0.1 mg/dL (0-0.2); Bilirubin Indirect, Calculated ND mg/dL (0.2-0.8)
--- NOTE | 2023-03-05 00:38 | ER ---
Nurse's Notes [facility] Name: Beverley Byrd Age: 72 yrs Sex: Male : 1950 Arrival Date: 03/04/2023 Time: 21:55 Bed 6 Private MD: Diagnosis: Abdominal pain, unspecified Presentation: 03/04 22:28 Chief complaint: EMS states: EMS was called for chest pain. Upon arrival pt was jb4 reporting more left flank pain and left abdominal pain. Lungs were CTA. VS stable. Coronavirus screen: At this time, the client does not indicate any symptoms associated with coronavirus-19. Ebola Screen: No symptoms or risks identified at this time. Initial Sepsis Screen: Does the patient meet any 2 criteria? No. Patient's initial sepsis screen is negative. Does the patient have a suspected source of infection? No. Patient's initial sepsis screen is negative. Risk Assessment: Do you want to hurt yourself or someone else? Patient reports no desire to harm self or others. Onset of symptoms was March 04, 2023. 22:28 Method Of Arrival: EMS: [facility] jb4 22:28 Acuity: OLESYA 3 jb4 Historical: - Allergies: 22:37 No Known Allergies; jb4 - PMHx: 22:37 Diabetes mellitus; Hypertensive disorder; jb4 - PSHx: 22:37 Cholecystectomy; jb4 - Immunization history:: Adult Immunizations up to date. - Social history:: Smoking status: Patient denies any tobacco usage or history of. Patient uses alcohol. - Family history:: not pertinent. Screenin/14 01:02 [facility] ED Fall Risk Assessment (Adult) History of falling in the last 3 months, jb4 including since admission No falls in past 3 months (0 pts) Confusion or Disorientation No (0 pts) Score/Fall Risk Level 0 - 2 = Low Risk Oriented to surroundings, Maintained a safe environment. Abuse screen: Denies threats or abuse. Nutritional screening: No deficits noted. Tuberculosis screening: No symptoms or risk factors identified. Assessment: 03/04 22:37 General: Appears in no apparent distress. comfortable, Behavior is calm, cooperative, jb4 appropriate for age. Pain: Complains of pain in anterior aspect of left upper chest Pain radiates to anterior aspect of left lateral abdomen Pain currently is 10 out of 10 on a pain scale. Neuro: Level of Consciousness is awake, alert, obeys commands, Oriented to person, place, time, situation. Cardiovascular: Patient's skin is warm and dry. Respiratory: Airway is patent Respiratory effort is even, unlabored, Respiratory pattern is regular, symmetrical. GI: No signs and/or symptoms were reported involving the gastrointestinal system. : No signs and/or symptoms were reported regarding the genitourinary system. EENT: No signs and/or symptoms were reported regarding the EENT system. Derm: Skin is intact, Skin is pink, warm \T\ dry. Musculoskeletal: Circulation, motion, and sensation intact. Range of motion: intact in all extremities. 03/05 00:16 Reassessment: Patient appears in no apparent distress at this time. Patient and/or jb4 family updated on plan of care and expected duration. Pain level reassessed. Patient is alert, oriented x 3, equal unlabored respirations, skin warm/dry/pink. 01:02 Reassessment: Patient appears in no apparent distress at this time. Patient and/or jb4 family updated on plan of care and expected duration. Pain level reassessed. Patient is alert, oriented x 3, equal unlabored respirations, skin warm/dry/pink. Pt verbalized understanding of d/c and follow up. discharged to [facility] to wait for ride home. Vital Signs: 03/04 22:37 BP 139 / 72; Pulse 90; Resp 16; Temp 97.6(O); Pulse Ox 97% on R/A; Pain 10/10; jb4 23:08 BP 113 / 62; Pulse 87; Resp 18; Pulse Ox 94% on R/A; kd3 03/05 00:16 BP 130 / 72; Pulse 84; Resp 16; Pulse Ox 95% on R/A; jb4 03/04 22:37 Pain Scale: Adult jb4 ED Course: 03/04 22:27 Patient arrived in ED. jb4 22:27 Davin Ty MD is Attending Physician. rt 22:29 Triage completed. jb4 22:37 Thai Fish, RN is Primary Nurse. jb4 22:37 Arm band placed on. jb4 23:01 XRAY Chest (1 view) In Process Unspecified. EDMS 03/05 00:13 CT Abd/Pelvis - IV Contrast Only In Process Unspecified. EDMS 01:02 Patient has correct armband on for positive identification. Bed in low position. Call jb4 light in reach. Side rails up X 1. Client placed on continuous cardiac and pulse oximetry monitoring. NIBP monitoring applied. 01:02 No provider procedures requiring assistance completed. IV discontinued, intact, jb4 bleeding controlled, No redness/swelling at site. Pressure dressing applied. Administered Medications: 03/04 22:57 Drug: Ondansetron IVP 4 mg Route: IVP; Site: left antecubital; jb4 22:58 Drug: morphine IVP or IV 4 mg Route: IVP; Infused Over: 4 mins; Site: left antecubital; jb4 Medication: 03/05 01:02 VIS not applicable for this client. jb4 Outcome: 00:37 Discharge ordered by . rt 01:02 Discharged to home ambulatory. jb4 01:02 Condition: stable 01:02 Discharge instructions given to patient, Instructed on discharge instructions, follow up and referral plans. Demonstrated understanding of instructions, follow-up care. 01:04 Patient left the ED. jb4 Signatures: Dispatcher [employer] EDMS Thai Fish RN RN jb4 Sasha Chavez RN RN kd3 Davin Ty MD MD rt Corrections: (The following items were deleted from the chart) 03/04 22:39 22:37 Pain: Complains of pain in anterior aspect of left upper chest Pain radiates to jb4 anterior aspect of left lateral abdomen Pain currently is 8 out of 10 on a pain scale. jb4 22:58 22:57 Ondansetron IVP 4 mg IVP in right antecubital jb4 jb4
--- NOTE | 2023-03-05 00:38 | EDPHYS ---
Physician Documentation [facility] Name: Beverley Byrd Age: 72 yrs Sex: Male : 1950 Arrival Date: 03/04/2023 Time: 21:55 Bed 6 Private MD: ED Physician Davin Ty HPI: 03/05 00:22 This 72 yrs old [place] Male presents to ER via EMS with complaints of Left-sided rt chest, abdominal pain. 00:22 Patient presents to the ED with a left-sided chest, abdominal pain that started about 1 rt hour prior to arrival. Is aching nature, not otherwise radiating. Denies difficulty breathing, nausea, vomiting, other acute complaints. Symptoms are aching nature, moderate severity, no other aggravating or elevating factors.. Historical: - Allergies: 03/04 22:37 No Known Allergies; jb4 - PMHx: 22:37 Diabetes mellitus; Hypertensive disorder; jb4 - PSHx: 22:37 Cholecystectomy; jb4 - Immunization history:: Adult Immunizations up to date. - Social history:: Smoking status: Patient denies any tobacco usage or history of. Patient uses alcohol. - Family history:: not pertinent. ROS: 03/05 00:22 Constitutional: Negative for fever, chills, and weight loss, Respiratory: Negative for rt shortness of breath, cough, wheezing, and pleuritic chest pain, Back: Negative for injury and pain, MS/Extremity: Negative for injury and deformity, Skin: Negative for injury, rash, and discoloration, Neuro: Negative for headache, weakness, numbness, tingling, and seizure, Psych: Negative for depression, anxiety, suicide ideation, homicidal ideation, and hallucinations. Cardiovascular: Positive for chest pain, Negative for edema. Abdomen/GI: Positive for abdominal pain, Negative for nausea, vomiting, and diarrhea. Exam: 00:22 Constitutional: This is a well developed, well nourished patient who is awake, alert, rt and in no acute distress. Head/Face: Normocephalic, atraumatic. Cardiovascular: Regular rate and rhythm with a normal S1 and S2. No gallops, murmurs, or rubs. Normal PMI, no JVD. No pulse deficits. Respiratory: Lungs have equal breath sounds bilaterally, clear to auscultation and percussion. No rales, rhonchi or wheezes noted. No increased work of breathing, no retractions or nasal flaring. Skin: Warm, dry with normal turgor. Normal color with no rashes, no lesions, and no evidence of cellulitis. MS/ Extremity: Pulses equal, no cyanosis. Neurovascular intact. Full, normal range of motion. Neuro: Awake and alert, GCS 15, oriented to person, place, time, and situation. Cranial nerves II-XII grossly intact. Motor strength 5/5 in all extremities. Sensory grossly intact. Cerebellar exam normal. Normal gait. Psych: Awake, alert, with orientation to person, place and time. Behavior, mood, and affect are within normal limits. 00:22 Chest/axilla: Palpation to left anterior chest wall reproduces chest pain, no crepitus. 00:22 ECG was reviewed by the Attending Physician. 00:22 Abdomen/GI: Mild tenderness to the left upper, left lower quadrants without rebound, guarding, distention. Vital Signs: 03/04 22:37 BP 139 / 72; Pulse 90; Resp 16; Temp 97.6(O); Pulse Ox 97% on R/A; Pain 10/10; jb4 23:08 BP 113 / 62; Pulse 87; Resp 18; Pulse Ox 94% on R/A; kd3 03/05 00:16 BP 130 / 72; Pulse 84; Resp 16; Pulse Ox 95% on R/A; jb4 03/04 22:37 Pain Scale: Adult jb4 MDM: 03/04 22:27 Patient medically screened. rt 03/05 00:37 Differential Diagnosis Generalized abdominal pain, acute coronary syndrome, abdominal rt aortic aneurysm, colitis, diverticulitis, pancreatitis. Data reviewed: vital signs, nurses notes, lab test result(s), EKG, radiologic studies. Consideration of Admission/Observation Escalation of care including admission/observation considered. I considered the following discharge prescriptions or medication management in the emergency department Medications were administered in the Emergency Department. See MAR. Independent interpretation of the following test(s) in the Emergency Department X-Ray: My interpretation is No consolidation seen on interpretation of the x-ray images. Test considered but Not performed: Ultrasound No gallbladder, ultrasound not indicated. Care significantly affected by the following chronic conditions: Diabetes, Hypertension. Counseling: I had a detailed discussion with the patient and/or guardian regarding: the historical points, exam findings, and any diagnostic results supporting the discharge/admit diagnosis, lab results, radiology results, the need for outpatient follow up. Response to treatment: the patient's symptoms have resolved after treatment. 03/04 22:28 Order name: Basic Metabolic Panel; Complete Time: 23:46 rt 03/04 22:28 Order name: CBC with Diff; Complete Time: 23:40 rt 03/04 22:28 Order name: LFT's; Complete Time: 23:46 rt 03/04 22:28 Order name: Magnesium; Complete Time: 23:46 rt 03/04 22:28 Order name: Troponin HS; Complete Time: 23:46 rt 03/04 22:28 Order name: Lipase; Complete Time: 23:46 rt 03/04 22:28 Order name: XRAY Chest (1 view) rt 03/04 22:28 Order name: CT Abd/Pelvis - IV Contrast Only rt 03/04 22:28 Order name: EKG; Complete Time: 22:29 rt 03/04 22:28 Order name: Cardiac monitoring; Complete Time: 22:45 rt 03/04 22:28 Order name: EKG - Nurse/Tech; Complete Time: 22:45 rt 03/04 22:28 Order name: IV Saline Lock; Complete Time: 22:45 rt 03/04 22:28 Order name: Labs collected and sent; Complete Time: 22:45 rt 03/04 22:28 Order name: O2 Per Protocol; Complete Time: 22:45 rt 03/04 22:28 Order name: O2 Sat Monitoring; Complete Time: 22:45 rt EC:22 Rate is 92 beats/min. Rhythm is regular, Normal Sinus Rhythm with No ectopy. QRS [place] rt is Normal. [place] interval is normal. QRS interval is normal. QT interval is normal. No Q waves. T waves are Normal. No ST changes noted. Interpreted by me. Administered Medications: 03/04 22:57 Drug: Ondansetron IVP 4 mg Route: IVP; Site: left antecubital; jb4 22:58 Drug: morphine IVP or IV 4 mg Route: IVP; Infused Over: 4 mins; Site: left antecubital; jb4 Disposition Summary: 03/05/23 00:37 Discharge Ordered Location: Home rt Problem: new rt Symptoms: are resolved rt Condition: Stable rt Diagnosis - Abdominal pain, unspecified rt Followup: rt - With: Private Physician - When: 2 - 3 days - Reason: Discharge Instructions: - Discharge Summary Sheet rt - Abdominal Pain, Adult rt Forms: - Medication Reconciliation Form rt - Thank You Letter rt - Antibiotic Education rt - Prescription Opioid Use rt - Patient Portal Instructions rt - Leadership Thank You Letter rt Signatures: Dispatcher [employer] Thai Simpson RN RN jb4 Davin Ty MD MD rt
[2023-03-05 01:09] VITALS: TEMP 97.6
[2023-03-05 01:11] VITALS: BP 130/72; O2SAT 95
--- NOTE | 2023-03-05 13:11 | EKG ---
Test Date: 2023-03-04 Test Time: 22:05:05 Development Mechanic: MB MEASUREMENT RESULTS: Intervals: Rate: 92 WA: 134 QRSD: 74 QT: 344 QTc: 425 [place]: P: 27 WA: 134 QRS: 43 T: 23 INTERPRETIVE STATEMENTS: Normal sinus rhythm Normal ECG Compared to ECG 10/10/2017 11:28:12 Myocardial infarct finding no longer present Electronically Signed On 03-05-23 13:09:33 CDT by Palomo Crenshaw
--- NOTE | 2023-03-05 14:13 | RAD REPORT ---
EXAM DESCRIPTION: RAD - Chest Single View - 03/04/2023 11:00 pm CLINICAL HISTORY: The patient is 72 years old and is Male; CHEST PAIN TECHNIQUE: Frontal view of the chest. COMPARISON: No relevant prior studies available. FINDINGS: LUNGS: Unremarkable. No consolidation. PLEURAL SPACE: Unremarkable. No pneumothorax. HEART: Unremarkable. No cardiomegaly. MEDIASTINUM: Unremarkable. BONES/JOINTS: Unremarkable. UPPER ABDOMEN: Unremarkable as visualized. IMPRESSION: No acute cardiopulmonary process. Electronically signed by: Ruthie Veal MD 03/04/2023 11:16 PM CDT Due to temporary technical issues with the PACS/Fluency reporting system, reports are being signed by the in house radiologist without review as a courtesy to ensure prompt reporting. The interpreting r adiologist is fully responsible for the content of the report.
--- NOTE | 2023-03-05 14:41 | RAD REPORT ---
EXAM DESCRIPTION: CT - Abdomen Pelvis W Contrast - 03/05/2023 6:55 am CLINICAL HISTORY: The patient is 72 years old and is Male; ABD PAIN TECHNIQUE: Axial computed tomography images of the abdomen and pelvis with intravenous contrast. S agittal and coronal reformatted images were created and reviewed. This CT exam was performed using one or more of the following dose reduction techniques: automated exposure control, adjustment of t he mA and/or kV according to patient size, and/or use of iterative reconstruction technique. COMPARISON: No relevant prior studies available. FINDINGS: Lung bases: Unremarkable. No mass. No consolidation. ABDOMEN: Liver: Unremarkable. No mass. Gallbladder and bile ducts: Gallbladder is surgically absent. No ductal dilation. Pancreas: Unremarkable. No mass. No ductal dilation. Spleen: Unremarkable. No splenomegaly. Adrenals: Unremarkable. No mass. Kidneys and ureters: Unremarkable. No solid mass. No hydronephrosis. Stomach and bowel: Unremarkable. No obstruction. No mucosal thickening. PELVIS: Appendix: The appendix is normal. Bladder: Unremarkable. Reproductive: Unremarkable as visualized. ABDOMEN and PELVIS: Intraperitoneal space: Unremarkable. No free air. No significant fluid collection. Bones/joints: No acute fracture. No dislocation. Soft tissues: Unremarkable. Vasculature: Scattered atherosclerotic vascular calcifications. No abdominal aortic aneurysm. Lymph nodes: Unremarkable. No enlarged lymph nodes. IMPRESSION: No acute finding in the abdomen/pelvis. Electronically signed by: Chris Del Castillo MD 03/05/2023 12:29 AM CDT Due to temporary technical issues with the PACS/Fluency reporting system, reports are being signed by the in house radiologist without review as a courtesy to ensure prompt reporting. The interpreting r adiologist is fully responsible for the content of the report.
== END 2023-03-05 01:04 | disposition home or self-care (01) ==
LOC: ER 21:55
DX: R10.9 Unspecified abdominal pain (principal); R07.9 Chest pain, unspecified; I10 Essential (primary) hypertension; E11.9 Type 2 diabetes mellitus without complications
CPT/HCPCS: 93005; 85025; 80048; 36415; 83735; 80076; 84484; 83690; 74177; 71045; 96375; 96374; 99284; Q9967; J2405